=== PATIENT | male | born 1980 ===

== ENCOUNTER 2016-10-08 20:15 | Inpatient (IN) ==
[2016-10-08] MEDS ORDERED: methylPREDNISolone SOD SUC 125 MG/2 ML VIAL IV STA (21:58)
[2016-10-08] MEDS ORDERED: FUROSEMIDE 40 MG/4 ML VIAL IV STA (21:58)
[2016-10-08] MEDS ORDERED: ALBUTEROL NEB SOLN 5 MG/ML 20 ML/BOTTLE CONT NEB STA (21:58)
--- NOTE | 2016-10-08 21:59 | Emergency Department Note ---
Bill Peter Brooke, am scribing for, and in the presence of, Steve Godwin MD 21 :49. Citlali Peter Charles R, MD, personally performed the services described in this documentation, ascribed by Brissa Khan in my presence, and it is both accurate and complete . Arrival - Arrival Chief Complaint: Fall Stated Complaint: FALL/PAIN/CANT CONCENTRATE ED Nursing Triage Note: pt to triage . pt states he fell in hallway this afternoon. pt states he is unsure of what he hit his head on. p t c.o headache. pt states he thinks he had loc. pt aaox3 in triage. Mode of Arrival: Ambulatory Limitations: No Limitations Source: Patient, RN Notes Reviewed Time Seen by Provider: 10/08/16 21:39 - History of Present Illness HPI Narrative: Patient is a 36 year old male who presents to the ED with c/o possible syncopal episode that happened prior to arrival. Patient says he remembers sitting down on the toilet and then says he woke up in the floor of the [address]. He did hit his head and has a knot to the forehead. He states, after waking, "it took me a minute to figure out where I was." He says that he "feels off." He says he has never passed out in the past and does not have a history of seizures. Patient says the left side of his chest does hurt "a little bit." He has PMHx of asthma , bronchitis, pneumonia, GERD, and chronic foot pain. Patient is a smoker. Family history of heart disease- grandfather. Allergies/Adverse Reactions: Allergies Allergy/AdvReac Type Severity Reaction Status Date / Time Penicillins Allergy ANAPHYLAXIS Verified 10/08/16 20:52 Home Medications: Home Medications Medication Instructions Recorded Confirmed Type Pantoprazole Tab [Protonix Tab] 40 mg PO DAILY 03/25/15 06/09/15 History Albuterol Sulfate [Albuterol 2 puffs IH Q4H PRN #1 hfa.aer.ad 05/10/15 06/09/15 Rx Sulfate Hfa] HYDROcodone/ACETAMIN 7.5-325 1 tablet PO Q6H #20 tablet 06/09/15 Rx [[place] 7.5-325] Sulfameth/Trimeth 800-160 Tab 1 tablet PO BID #14 tablet 06/09/15 Rx [Bactrim Ds Tab] Sulfameth/Trimeth 400-80 Tab 1 tablet PO BID #20 tablet 06/13/15 Rx [Bactrim Tab] Review of System - Review of System 12 point system: reviewed and no additional remarkable complaints except as stated - Review of System Constitutional: Absent: fever Head/Ears/Nose/Throat: Present: other (knot on forehead) Respiratory: Absent: respiratory distress Cardiovascular: Present: chest pain (left side), syncope (possible) Skin: Absent: rash Medical,Surgical,& Family Hx - Medical History Cardio: No history of: Hypertension Endocrine: No history of: Diabetes Mellitus (IDDM), Diabetes Mellitus (NIDDM) Respiratory: History of: Asthma, Bronchitis, Pneumonia Renal: No history of: Renal Problems Gastrointestinal: History of: GERD No history of: Gastrointestinal Bleed, Liver Problems, GI Problems Musculoskeletal: History of: Musculoskeletal Problems (chronic foot pain) - Surgical History Abdominal Surgeries: Surgical HX of: Appendectomy Patient denies: Abdominal Surgery - Social History Smoking Status: Unknown if ever smoked Frequency of Alcohol Use: None Type of Drug Use: None Exam Vital Signs: Vital Signs Temperature 98.3 F 10/08/16 20:48 Pulse Rate 96 H 10/08/16 21:30 Respiratory Rate 20 10/08/16 21:30 Blood Pressure 144/84 10/08/16 21:30 O2 Sat by Pulse Oximetry 100 10/08/16 21:30 - General General appearance: alert, in no apparent distress, obese - Head Head exam: Present: normocephalic, other (3cm contusion to forehead that is painful) - Eye Eye exam: Present: normal appearance - ENT ENT exam: Present: normal exam - Neck Neck exam: Present: normal inspection - Chest Chest inspection: Present: normal inspection, symmetric chest wall rise - Respiratory Respiratory exam: Present: rales (bilateral), wheezes (bilateral) - Cardiovascular Cardiovascular exam: Present: normal rhythm, tachycardia, normal heart sounds - Abdominal Exam Abdominal exam: Present: soft. Absent: distention, tenderness - Extremities Exam Extremities exam: Present: pedal edema (+1 bilateral lower extremities) - Back Exam Back exam: Present: normal inspection - Neurological Exam Neurological exam: Present: alert, oriented X3 - Psychiatric Psychiatric exam: Present: normal affect, normal mood - Skin Skin exam: Present: warm, dry, intact, normal color Course - Consultations Consultation #1: Hospitalist will admit patient Time: 01:40 Results - Labs CBC & BMP: 10/08/16 21:59 10/08/16 21:59 Lab Results: I have reviewed the patients labs Labs: Laboratory Tests 10/08/16 21:59 WBC 15.8 H Neut # (Auto) 9.5 H Lymph # (Auto) 4.8 H [place] # (Auto) 0.9 H Laboratory Tests 10/08/16 00:52 Urine Urobilinogen < 2.0 H - Diagnostic Findings Procedure: Chest x-ray: report reviewed by me (No acute cardiopulmonary pathology identified), CT: report reviewed by me (CT head/brain wo con: No acute intracranial abnormality is identified.) Disposition Clinical Impression: Syncope, Bronchitis, Generalized weakness Case discussed with: patient Disposition: Still a Patient Condition: Stable Time of Disposition: 01:42
[2016-10-08] MEDS ORDERED: FUROSEMIDE 100 MG/10 ML VIAL ONE (22:17)
[2016-10-08] MEDS ORDERED: methylPREDNISolone SOD SUC 125 MG/2 ML VIAL ONE (22:17)
--- NOTE | 2016-10-08 22:40 | XRay Report ---
Portable chest Date: 10/08/2016 Clinical history: Shortness of breath Comparison: 11/16/2014 Technique: Portable AP sitting chest Findings: The heart is normal in size with cardiac fat pads. Calcified granulomata/nodes with no infiltration. Limited evaluation of the lung apices. Degenerative changes are noted. Impression: No acute cardiopulmonary pathology identified. PROCEDURE INTERPRETED AT [facility] DEPARTMENT OF RADIOLOGY Final Report Signed by: Dr. Pura Valenzuela
--- NOTE | 2016-10-08 22:47 | CT Report ---
Referring physician: Steve Godwin Exam: CT brain without contrast Date: 10/08/2016 Comparison: None Reason: Syncope Technique: Axial images of the head were obtained without the use of contrast. Total DLP was 1103.60 mGy*cm. Findings: No hydrocephalus or midline shift is present. There is no evidence of an acute infarction, recent intracranial hemorrhage or abnormal mass effect. The osseous structures appear intact. The mastoid air cells and visualized paranasal sinuses are clear. Impression: No acute intracranial abnormality is identified. The CT exam was performed using one or more of the following dose reduction techniques: Automated exposure control and adjustment of the mA and/or kV according to patient size. PROCEDURE INTERPRETED AT [facility] DEPARTMENT OF RADIOLOGY Final Report Signed by: Dr. Pura Valenzuela
[2016-10-08] MEDS ORDERED: ACETAMINOPHEN 500 MG TABLET ONE (23:26)
[2016-10-08] MEDS ORDERED: ACETAMINOPHEN 500 MG TABLET PO STA (23:33)
[2016-10-09 00:52] LABS: Basophils # 0.1 10*3/uL (0.0-0.2); Basophils % 0.4 % (0.0-0.8); Eosinophils # 0.4 10*3/uL (0.0-0.87); Eosinophils % 2.2 % (0.00-10.9); Hematocrit 44.9 VOL% (42.0-52.0); Hemoglobin 14.8 GM/DL (14.0-18.0); Immature Granulocytes Absolute 0.15 #; Lymphocytes # 4.8 10*3/uL (1.4-4.0); Lymphocytes % 30.1 % (21.2-54.2); Mean Corpuscular Hemoglobin 29 PG (27-34); Mean Corpuscular Volume 88.7 FL (87-102); Mean Platelet Volume 10.7 FL (9.6-12.0); Monocytes # 0.9 10*3/uL (0.11-0.8); Monocytes % 5.9 % (1.7-12.7); Neutrophils # 9.5 10*3/uL (1.4-7.4); Neutrophils % 60.4 % (38.7-73.9); Platelet Count 262 T/CUMM (130-400); Red Blood Count 5.06 MC/CUMM (3.8-5.5); Red Cell Distribution Width 14.2 % (9.3-17.3); White Blood Count 15.8 T/CUMM (4-12)
[2016-10-09 01:03] LABS: Barbiturates Screen,Urine Negative (Negative); Benzodiazepines Screen,Urine Negative (Negative); Cannabinoid Screen,Urine Negative (Negative); Opiate Screen,Urine Negative (Negative); Phencyclidine Screen,Urine Negative (Negative)
[2016-10-09 01:04] LABS: Apearance,Urine CLEAR (Clear); Bilirubin,Urine Negative (Negative); Blood, Urine Negative (Negative); Glucose,Urine (UA) Negative (Negative); Ketones,Urine Negative (Negative); Mucus,Urine Occasional /LPF (Occasional); Nitrite,Urine Negative (Negative); Protein,Urine Negative; RBC,Urine 1 /HPF (0-4); Squamous Epithelial Cell,Urine Occasional /HPF (0-10); Urine Color Yellow (Yellow); Urine Specific Gravity 1.009 (1.001-1.035); Urine Urobilinogen < 2.0 EU/DL (0.2-1.0); WBC,Urine 1 /HPF (0-6)
[2016-10-09 01:06] LABS: Alanine Aminotransferase 40 U/L (16-61); Albumin 3.8 G/DL (3.4-5.0); Alkaline Phosphatase 104 U/L (45-117); Aspartate Amino Transferase 22 U/L (0-37); Blood Urea Nitrogen 9 MG/DL (7-18); Calcium 8.9 MG/DL (8.5-10.1); Glucose 120 MG/DL (74-106); Osmolality,Calculated 274.7 MOS/KG (273-304); Potassium 3.6 MMOL/L (3.5-5.1); Sodium 138 MMOL/L (136-145); Total Protein 7.8 G/DL (6.4-8.3); Troponin I Only < 0.015 NG/ML (0.00-0.045)
--- NOTE | 2016-10-09 02:32 | Hospitalist History & Physical ---
Assessment and Plan (1) Sinus tachycardia Status: Acute Assessment and plan: Because of this is unknown we will check thyroid function tests. Also check a urine drug screen Current Visit: Yes (2) Syncope Status: Acute Assessment and plan: Unexplained syncope I am informed this started as the patient had been on the bathroom. Vasovagal can happen. That does not explain why he is so tachycardic he does not look dehydrated. There is no history of bleeding. This could be vasogenic syncopal or could be neurogenic syncope but vasovagal activity is the hired to the differential given his circumstances. Was to check for troponins just in case there is an NSTEMI. Patient is consulted to neurology MRI MRA of the brain will be done on outside chance of intracranial structural pathology. Current Visit: Yes (3) Bronchitis Status: Acute Assessment and plan: Patient does have a leukocytosis he may want to be put on antibiotics. I will put the patient on a levofloxacin 750 IV daily she is to be reassessed by hospital medicine in the morning; he is admitted to Dr. Pinto's service Current Visit: Yes History of Present Illness Chief complaint: Past out at home patient also was wheezing History of present illness: Mr. Robin is a 36 year old male presents to the ED with c/o possible syncopal episode that happened prior to arrival. Patient says he remembers sitting down on the toilet and then says he woke up in the floor of the [address]. He did hit his head and has a knot to the forehead. He states, after waking, "it took me a minute to figure out where I was." He says that he "feels off." He says he has never passed out in the past and does not have a history of seizures. Patient says the left side of his chest does hurt "a little bit." He has PMHx of asthma , bronchitis, pneumonia, GERD, and chronic foot pain. Patient is a smoker. Family history of heart disease- grandfather. Patient denies taking any medications but are noticed that he has been on hard hydrocodone at home though that was not updated. He has significant sinus tachycardia though history that his heart is always fast. Denies any diarrhea cough fevers polyuria and polydipsia. Home Medications Medication Instructions Recorded Confirmed Type Pantoprazole Tab [Protonix Tab] 40 mg PO DAILY 03/25/15 06/09/15 History Albuterol Sulfate [Albuterol 2 puffs IH Q4H PRN #1 hfa.aer.ad 05/10/15 06/09/15 Rx Sulfate Hfa] HYDROcodone/ACETAMIN 7.5-325 1 tablet PO Q6H #20 tablet 06/09/15 Rx [[place] 7.5-325] Sulfameth/Trimeth 800-160 Tab 1 tablet PO BID #14 tablet 06/09/15 Rx [Bactrim Ds Tab] Sulfameth/Trimeth 400-80 Tab 1 tablet PO BID #20 tablet 06/13/15 Rx [Bactrim Tab] Allergies Allergy/AdvReac Type Severity Reaction Status Date / Time Penicillins Allergy ANAPHYLAXIS Verified 10/08/16 20:52 Medical,Surgical,& Family Hx - Medical History Cardio: No history of: Hypertension Endocrine: No history of: Diabetes Mellitus (IDDM), Diabetes Mellitus (NIDDM) Respiratory: History of: Asthma, Bronchitis, Pneumonia Renal: No history of: Renal Problems Gastrointestinal: History of: GERD No history of: Gastrointestinal Bleed, Liver Problems, GI Problems Musculoskeletal: History of: Musculoskeletal Problems (chronic foot pain) - Surgical History Abdominal Surgeries: Surgical HX of: Appendectomy Patient denies: Abdominal Surgery - Social History Smoking Status: Unknown if ever smoked Frequency of Alcohol Use: None Type of Drug Use: None - Constitutional Constitutional: Present: as per HPI - EENT Eyes: Present: as per HPI Nose, mouth and throat: Present: as per HPI - Cardiovascular Cardiovascular: Present: as per HPI - Respiratory Respiratory: Present: as per HPI - Gastrointestinal Gastrointestinal: Present: as per HPI - Genitourinary Genitourinary: Present: as per HPI - Neurological Neurological: Present: as per HPI - Psychiatric Psychiatric: Present: as per HPI - Endocrine Endocrine: Present: as per HPI - Hematologic/Lymphatic Hematologic/Lymphatic: Present: as per HPI Exam - Constitutional Vitals: Period Temp Pulse Resp BP Sys/Givens Pulse Ox Last 24 Hr 98.3 F 18-108 20-20 136-145/84-94 98-100 General appearance: over weight - Head Head exam: Present: normocephalic, atraumatic, other (Patient however he did fine but of his head and states that is hurting there is no external abnormalities) - Eye Eye exam: Present: EOMI, other (Anicteric sclera no conjunctival petechiae) Pupils: Present: MARIANNE - ENT ENT exam: Present: normal oropharynx - Neck Neck exam: Present: normal inspection - Respiratory Respiratory exam: Present: clear to auscultation bilaterally, other - Cardiovascular Cardiovascular exam: Present: regular rate and rhythm, tachycardia, other ( Sinus control) - GI/Abdominal GI/Abdominal exam: Present: normal bowel sounds, soft - Extremities Exam Extremities exam: Present: full ROM - Back Exam Back exam: Present: normal inspection - Neurological Exam Neurological exam: Present: alert, oriented X3, CN II-XII intact - Psychiatric Psychiatric exam: Present: normal affect, normal mood - Skin Skin exam: Present: normal color, warm, dry Results - Labs CBC & BMP: 10/08/16 21:59 10/08/16 21:59 Lab Results: I have reviewed the past 24 hour labs (EKG is sinus tachycardia. CT of the head is nondiagnostic chest x-ray is nondiagnostic)
[2016-10-09] MEDS: DEXTROSE 5% NACL 0.9% 1,000 ML IV SCH ×2 (05:33→17:47)
[2016-10-09 08:06] LABS: Blood Urea Nitrogen 8 MG/DL (7-18); Calcium 9.5 MG/DL (8.5-10.1); Glucose 279 MG/DL (74-106); Magnesium 2.3 MG/DL (1.8-2.4); Potassium 4.1 MMOL/L (3.5-5.1); Sodium 136 MMOL/L (136-145); Troponin I Only < 0.015 NG/ML (0.00-0.045)
--- NOTE | 2016-10-09 08:47 | EKG Report ---
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
[2016-10-09] MEDS ORDERED: LORazepam 2 MG/1 ML VIAL IV ONE (08:59)
[2016-10-09] MEDS: PANTOPRAZOLE 40 MG TABLET PO SCH (09:31)
--- NOTE | 2016-10-09 13:24 | Magnetic Resonance Report ---
MR angio head wo con (COW) Indication: Syncope. Profound fatigue. Comparison: None. Technique: Using a 1.5 Hortensia magnet, [id number] MRA of the [place] of [place] was performed. In addition to axial images obtained from the skull base to the mid calvarium, volumetric reconstructions of the anterior and posterior circulation were submitted for interpretation. No intravenous contrast was administered. Findings: Posterior communicating arteries are not well-visualized suggesting anatomic absence or small vessel size. Anterior circulation demonstrates no evidence of aneurysm formation, significant stenosis, or occlusion. The ophthalmic arteries are unremarkable. The visualized portions of the terminal vertebral arteries, basilar artery, basilar artery bifurcation, and posterior cerebral arteries demonstrates no significant abnormality. Impression: 1. No findings are present to suggest etiology of the provided symptoms. 10/09/2016 1:19 PM PROCEDURE INTERPRETED AT [facility] DEPARTMENT OF RADIOLOGY Final Report Signed by: Dr. Celestino Soriano
--- NOTE | 2016-10-09 13:26 | Magnetic Resonance Report ---
MR head/brain w and wo con Indication: Syncope. Fatigue. Comparison: None. Technique: Using 1.5 Hortensia magnet, multisequence multiplanar MR imaging of the brain was performed prior to and following the administration of intravenous contrast. Findings: There is no evidence of restricted diffusion to suggest acute infarction. Sagittal T1 sequence demonstrates corpus callosum to be intact. The pituitary gland and optic nerve appear unremarkable. Cerebellar tonsils demonstrate normal location. Axial sequences demonstrate no evidence of mass, hemorrhage, hydrocephalus, or midline shift. Basal cisterns are patent. The arterial flow voids demonstrate no significant abnormalities. The cerebellum demonstrates no significant abnormality. The intraorbital contents, calvarium, soft tissues overlying the calvarium, mastoid air cells, and imaged muscles of mastication demonstrate no significant abnormality. Small mucous retention cyst is suggested within the left maxillary sinus. The sinuses otherwise are clear. Following administration of intravenous contrast, no unexpected areas of enhancement are demonstrated within the brain, meninges, or orbits. Impression: 1. No evidence of acute intracranial pathology. 10/09/2016 1:21 PM PROCEDURE INTERPRETED AT [facility] DEPARTMENT OF RADIOLOGY Final Report Signed by: Dr. Celestino Soriano
--- NOTE | 2016-10-09 15:22 | Hospitalist Progress Note ---
Assessment and Plan (1) Syncope Status: Acute Current Visit: Yes (2) Sinus tachycardia Status: Acute Current Visit: Yes Hospitalist: Subjective Interval history: No acute events overnight. Patient remembers blacking out yesterday, sitting on toilet, woke up in the hallway. First episode of this in a young patient. Neurology work-up is underway. Currently being monitored on telemetry. He might benefit from a holter monitor outpatient, will consult cardiology. No repeat episodes of syncope since admission. Possible discharge tomorrow. Exam - Constitutional Vitals: Period Temp Pulse Resp BP Sys/Givens Pulse Ox Last 24 Hr 97.6 F-97.9 F 111-117 20-20 128-129/66-77 95-97 General appearance: morbidly obese - Head Head exam: Present: normocephalic, atraumatic - Eye Eye exam: Present: EOMI Pupils: Present: MARIANNE - ENT ENT exam: Present: normal exam - Neck Neck exam: Present: normal inspection - Respiratory Respiratory exam: Present: clear to auscultation bilaterally. Absent: rhonchi, wheezes - Cardiovascular Cardiovascular exam: Present: regular rate and rhythm - GI/Abdominal GI/Abdominal exam: Present: normal bowel sounds, soft. Absent: tenderness, rebound - Extremities Exam Extremities exam: Present: normal inspection - Back Exam Back exam: Present: normal inspection - Neurological Exam Neurological exam: Present: alert, oriented X3 - Psychiatric Psychiatric exam: Present: normal affect, normal mood - Skin Skin exam: Present: warm, intact Results - Labs CBC & BMP: 10/08/16 21:59 10/09/16 07:22
--- NOTE | 2016-10-09 16:28 | Neurology Consult Note ---
History of Present Illness History of present illness: Mr. Robin is a 36 year old right-handed white gentleman morbidly obese presents to the ED with c/o possible syncopal episode that happened prior to arrival. Patient says he remembers sitting down on the toilet and then says he woke up in the floor of the [address]. He did hit his head and has a knot to the forehead. He states, after waking, it took him a minute to figure out where he was." He says that he "feels off." He says he has never passed out in the past and does not have a history of seizures. He has PMHx of asthma, bronchitis, pneumonia, GERD, and chronic foot pain. Patient is a smoker. Family history of heart disease- grandfather. MRI of the brain and MRA of the [place] are all within normal limits. Home Medications Medication Instructions Recorded Confirmed Type No Known Home Medications [No 10/09/16 10/09/16 History Known Home Medications] Allergies Allergy/AdvReac Type Severity Reaction Status Date / Time Penicillins Allergy ANAPHYLAXIS Verified 10/08/16 20:52 12 point system: reviewed and no additional remarkable complaints except as stated Medical,Surgical,& Family Hx - Medical History Cardio: No history of: Hypertension Neurology: History of: Peripheral Neuropathy Endocrine: No history of: Diabetes Mellitus (IDDM), Diabetes Mellitus (NIDDM) Respiratory: History of: Asthma, Bronchitis, Pneumonia Renal: No history of: Renal Problems Genitourinary: History of: Kidney Stones Gastrointestinal: History of: GERD No history of: Gastrointestinal Bleed, Liver Problems, GI Problems Musculoskeletal: History of: Musculoskeletal Problems (chronic foot pain) - Surgical History Abdominal Surgeries: Surgical HX of: Appendectomy Patient denies: Abdominal Surgery - Social History Smoking Status: Current every day smoker Frequency of Alcohol Use: None Type of Drug Use: None Exam - Constitutional Vitals: Period Temp Pulse Resp BP Sys/Givens Pulse Ox Last 24 Hr 97.6 F-98.6 F 106-117 20-20 128-131/66-85 95-98 Exam: GENERAL: Patient is in no acute distress. NECK: Neck is supple. There is no JVD. No carotid bruits present. No thyroid masses. CVS: First and second heart sounds are normal. There is no S3 present. Regular rate and rhythm. RESPIRATORY: Lungs are clear to auscultation without any rales or rhonchi. ABDOMEN: Soft and non-tender. Bowel sounds are present. There is no hepatosplenomegaly. EXT: There is no palpable edema. Peripheral pulses are present. Skin: No rashes Central Nervous system: General: Alert, awake and Oriented x 3 Speech: Fluent Comprehension: Intact and normal Facial expressions: Normal Cranial Nerves: CN1/Olfactory: Normal CN II/ Optic: Normal, Visual Patino unreliable CN III, and : MARIANNE & EOMI CN V: Normal & intact CN VII: face is symmetric CNVIII: Normal CN XI/X/XI/XII: Intact and Normal Motor: Bulk and Tone is normal. Strength in the right 5/5 Strength in the left 5/5 Sensory: Grossly intact for all the modalities of PP, LT and temp sense Reflexes: 1+ and symmetrical Cerebellar function: Normal finger to nose and heel to vaca testing. Toes: Equivocal Gait: Normal heel to heel and toe to toe and tandem walk. Results - Labs CBC & BMP: 10/08/16 21:59 10/09/16 07:22 Assessment and Plan (1) Syncope Status: Acute Assessment and plan: Sounds like a vasovagal phenomena. No evidence of a stroke, TIAs, epilepsy or seizures. No further neurological intervention needed. Okay to go home when okay with PCP Sign off please call as needed Current Visit: Yes
[2016-10-09] MEDS ORDERED: ENOXAPARIN 150 MG/ML SYRINGE SUBCUT ONE (16:52)
[2016-10-09] MEDS ORDERED: ASPIRIN EC 325 MG TABLET PO SCH (17:00)
--- NOTE | 2016-10-09 17:06 | Cardiology Consult Note ---
<Candie Garcia E - Last Filed: 10/09/16 16:54> Assessment and Plan - Time spent with patient Time spent with patient: Greater than 30 minutes Time spent discussing smoking cessation with patient: 3 to 10 minutes (1) Chest pain Status: Acute Assessment and plan: See plan of care listed below Current Visit: Yes (2) Morbid obesity Status: Chronic Assessment and plan: See plan of care listed below Current Visit: Yes (3) Sleep disturbance Status: Chronic Assessment and plan: See plan of care listed below Current Visit: Yes (4) Tobacco use Status: Chronic Assessment and plan: See plan of care listed below Current Visit: Yes (5) Syncope Status: Acute Assessment and plan: See plan of care listed below Current Visit: Yes (6) Sinus tachycardia Status: Acute Assessment and plan: See plan of care listed below Current Visit: Yes History of Present Illness - Data of Consult Patient: new to practice Consult date: 10/09/16 Requesting Physician: Darnell Bañuelos - Consult Narrative Reason for consult: syncope History of present illness: 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 Robin is a 36 year old male not previously followed by cardiology. Risk factors include: Morbid obesity, sedentary lifestyle, tobaccoism. Presented to the emergency department at [facility] this morning after experiencing a syncopal episode while using the bathroom yesterday. Patient tells me while he was sitting on the commode he passed out and when he awoke, he was lying on the floor. He tells me he is uncertain how long he was out. It was not witnessed by another so there was no seizure activity noted. He did lose control of his urine. When he woke, he tells me he is having a chest tightness in the center of his chest which lasted several hours. It did not radiate but he found it was affecting his breathing. Taking a deep breath was somewhat painful. He is currently chest pain-free. Upon arrival to the emergency department, he has undergone CT head, MRA of the brain which revealed no significant abnormality. Chest x-ray is unremarkable. EKG reveals sinus tachycardia. 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 Since beginning driving, he has noted bilateral lower extremity edema. He has neuropathy of lower extremities and does not feel pain very well. However, upon palpation of the right calf, he is tender to touch. He has never been diagnosed with a DVT or PTE. He has never had a cardiac workup. Echocardiogram has been completed and results are pending. Patient will undergo V/Q lung scan today, venous ultrasound bilateral lower extremities. I will start Lovenox 1 mg/kg 1 until the results of the V/Q lung scan returned. He has been given an aspirin as well. I will start a low-dose beta-martha and monitor his heart rate. Of note, patient does not have insurance and certainly could benefit from a sleep study. He has a Malampati Airway class IV, witnessed cessation of breathing while sleeping. Neck circumference greater than 44 cm. I stressed the importance of obtaining healthcare benefits and now that he is working he believes he may be eligible soon for insurance. ASSESSMENT/PLAN: 1. SYNCOPE -see plan of care listed above. 2. SINUS TACHYCARDIA - adding betablocker and ruling out PTE as etiology 3. HYPERTENSION - will adjust medications accordingly during hospitalization 4. MORBID OBESITY - reinforced the merits of weight loss 5. SLEEP DISORDER - will need outpatient sleep study 6. EDEMA - venous US BLE 7. CHEST PAIN - will rule out PTE. CIE negative. Will continue to follow. 8. TOBACCOISM -the merits of tobacco cessation was discussed for greater than 5 minutes CC: Letitia Pinto MD - Home Medications and Allergies Home Medications: Home Medications Medication Instructions Recorded Confirmed Type No Known Home Medications [No 10/09/16 10/09/16 History Known Home Medications] Allergies/Adverse Reactions: Allergies Allergy/AdvReac Type Severity Reaction Status Date / Time Penicillins Allergy ANAPHYLAXIS Verified 10/08/16 20:52 Review of systems: REVIEW OF SYSTEMS: - Constitutional Constitutional: Present: Fatigue. Absent: syncope, anorexia, night sweats - EENT Eyes: Absent: blurry vision, loss of vision, diplopia Ears: Absent: decreased hearing, ear pain, ear discharge - Cardiovascular Cardiovascular: Present: chest pain with deep breath. Edema bilateral lower extremities. Denies claudication - Respiratory Respiratory: Present: RAYMOND, chronic. Absent: wheezing, hemoptysis, change in phlegm color - Gastrointestinal Gastrointestinal: Denies constipation. Absent: abdominal pain, hematemesis, hematochezia, melena, change in bowel habits, nausea - Genitourinary Genitourinary: Absent: difficulty urinating, dysuria, urinary hesitancy, flank pain - Musculoskeletal Musculoskeletal: Present: back pain Absent: joint swelling, muscle cramps, muscle weakness - Neurological Neurological: Present: normal gait without frequent falls. Absent: dizziness, hemiparesis - Psychiatric Psychiatric: Absent: anxiety, depression, difficulty concentrating - Endocrine Endocrine: Present: fatigue. Absent: cold intolerance, heat intolerance, polyuria, polyphagia, polydipsia - Hematologic/Lymphatic Hematologic/Lymphatic: Present: easy bruising. Absent: easy bleeding -Integumentary Integumentary: Absent: lesions, rashes, skin breakdown Medical,Surgical,& Family Hx - Medical History Cardio: No history of: Cardiac Dysrhythmia, CHF, CAD, Hypertension, NC Neurology: History of: Peripheral Neuropathy Endocrine: No history of: Diabetes Mellitus (IDDM), Diabetes Mellitus (NIDDM) Respiratory: History of: Asthma, Bronchitis, Pneumonia Renal: No history of: Renal Problems Genitourinary: History of: Kidney Stones Gastrointestinal: History of: GERD No history of: Gastrointestinal Bleed, Liver Problems, GI Problems Musculoskeletal: History of: Musculoskeletal Problems (chronic foot pain) - Surgical History Abdominal Surgeries: Surgical HX of: Appendectomy Patient denies: Abdominal Surgery - Social History Smoking Status: Current every day smoker Have you smoked in the last 12 months: Yes Time spent discussing smoking cessation with patient: 3 to 10 minutes Frequency of Alcohol Use: None Type of Drug Use: None Marital Status: Single Functional capacity: independent ambulation Physical Examination Vital Signs Temp Pulse Resp BP Pulse Ox 98.3 F 108 H 20 145/94 98 10/08/16 20:48 10/08/16 20:48 10/08/16 20:48 10/08/16 20:48 10/08/16 20:48 General: [Appears well with no apparent distress.] [Pleasant and cooperative. ] [Appears comfortable.] HEENT: [PERRL, normocephalic, atraumatic. Mucous membranes moist. No jaundice noted. Conjunctiva moist and clear, sclerae anicteric] Neck: Difficult to assess for JVD due to habitus. No thyromegaly or lymphadenopathy noted. No carotid bruit appreciated Cardiac: [Tachycardic rate and rhythm.] [No obvious murmur rub or gallop.] Lungs: [Clear to auscultation without accessory muscle use to assist the respiratory pattern.] Not requiring oxygen Abdomen: Soft, bowel sounds normoactive. Nontender and nondistended. No abdominal bruit or thrill noted. No masses noted. Musculoskeletal: No fluid collection. Decreased range of motion is noted. Extremities: No clubbing, cyanosis noted. [Trace bilateral lower extremity edema ] Upper extremity pulses 2+. Lower extremity pulses 2+. Capillary refill less than 3 seconds. Skin: No unusual lesions or rashes. No skin breakdown appreciated. Neuro: Awake, alert and oriented 3. Moves all extremities well without hemiparesis or paralysis. No essential tremor is appreciated. Result/EKG - Labs CBC & BMP: 10/08/16 21:59 10/09/16 07:22 Lab Results: I have reviewed the past 24 hour labs Labs: Laboratory Results - last 24 hr 10/09/16 10/09/16 07:22 07:22 Sodium 136 Potassium 4.1 Chloride 101 Carbon Dioxide 21 Anion Gap 18.1 H BUN 8 Creatinine 1.20 GFR Calculation 121 BUN/Creatinine Ratio 6.00 Glucose 279 H Calculated Osmolality 279.0 Calcium 9.5 Magnesium 2.3 Troponin I < 0.015 TSH 3rd Generation 0.724 - Diagnostic Findings Procedure: Chest x-ray: report reviewed by me, CT: report reviewed by me, MRI: report reviewed by me, Ultrasound: pending - EKG EKG results: interpreted by me EKG shows: tachycardia <Jac Hernandez - Last Filed: 10/09/16 18:22> History of Present Illness - Consult Narrative History of present illness: Mr. Robin is a 36 year old male with history and exam as noted. Agree with assessment. This time we await his evaluation. His syncopal episode certainly may have been a post micturition syncope. We'll discuss his father with the patient. We'll order an echocardiogram. CC: Letitia Pinto MD Physical Examination Vital Signs Temp Pulse Resp BP Pulse Ox 98.3 F 108 H 20 145/94 98 10/08/16 20:48 10/08/16 20:48 10/08/16 20:48 10/08/16 20:48 10/08/16 20:48 Result/EKG - Labs CBC & BMP: 10/08/16 21:59 10/09/16 07:22 Labs: Laboratory Results - last 24 hr 10/09/16 10/09/16 07:22 07:22 Sodium 136 Potassium 4.1 Chloride 101 Carbon Dioxide 21 Anion Gap 18.1 H BUN 8 Creatinine 1.20 GFR Calculation 121 BUN/Creatinine Ratio 6.00 Glucose 279 H Calculated Osmolality 279.0 Calcium 9.5 Magnesium 2.3 Troponin I < 0.015 TSH 3rd Generation 0.724
--- NOTE | 2016-10-09 19:03 | Nuclear Medicine Report ---
Exam: Lung scan ventilation/perfusion Date: 10/09/2016 Comparison: Chest x-ray 10/08/2016 Reason: Shortness of breath, chest pain, syncope Technique: 40 mCi of technetium 99m DTPA aerosolized was inhaled with injection of 5 mCi of technetium 99m MAA . Ventilation and perfusion images of both lungs were acquired. Findings: Diminished ventilation peripherally in both lungs. No unmatched defects are identified. Impression: Low probability lung scan. PROCEDURE INTERPRETED AT [facility] DEPARTMENT OF RADIOLOGY Final Report Signed by: Dr. Pura Valenzuela
--- NOTE | 2016-10-09 19:08 | Ultrasound Report ---
Exam: Bilateral lower extremity venous Doppler ultrasound Comparison: None Clinical history: Bilateral lower edema Technique: Duplex scan of the lower extremity veins using B-mode/grayscale scaled imaging and Doppler spectral analysis and color flow. Findings: Major venous structures of the lower extremities demonstrate a normal course and caliber. Normal color-flow study and spectral analysis. There is normal compression and augmentation of bilateral common femoral, superficial femoral and popliteal veins. The proximal bilateral greater saphenous veins appear to be patent. Impression: No evidence to suggest deep venous thrombosis within either lower extremity. Ultrasound images were captured and stored. PROCEDURE INTERPRETED AT [facility] DEPARTMENT OF RADIOLOGY Final Report Signed by: Dr. Pura Valenzuela
--- NOTE | 2016-10-09 19:51 | ECHO Report ---
Carlos Robin 10/09/2016 Exam Date: 15:30 Referring Physician: Molly Seals Technologist: CHRISTIANE Age: 36 Ht (in): 72 Wt (lb): 300 MExam [facility] Gender: Echo [id number]: weakness, sinus tachycardia, syncopeIndications:onchitis BP: 129 / 77 HR: 111 SinusRhythm: Technically difficult studyTechnical Quality: IMPRESSIONS 1. This is very limited study. 2. Left that was grossly normal size and systolic function with ejection fraction 55+ percent. There is concentric left ventricle hypertrophy is mild to moderate with grade 1 diastolic dysfunction. 3. Other cardiac chambers appear to be grossly normal size. 4. Valvular structures are not well are adequate visualized but there is no gross Doppler abnormalities noted. MEASUREMENTS (Male / Female) Normal Values 2D ECHO LV Diastolic Diameter PLAX 4.3 cm 4.2 - 5.9 / 3.9 - 5.3 cm LV Systolic Diameter PLAX 2.8 cm LV Fractional Shortening PLAX 34.8 % IVS Diastolic Thickness 2.1 cm 0.6 - 1.0 / 0.6 - 0.9 cm LVPW Diastolic Thickness 1.8 cm 0.6 - 1.0 / 0.6 - 0.9 cm RV Internal Dim ED PLAX 2.4 cm Aortic Root Diameter 3.0 cm LA Systolic Diameter LX 3.2 cm 3.0 - 4.0 / 2.7 - 3.8 cm FINDINGS Left Ventricle Left ventricle is normal size and wall probably normal systolic function. Ejection fraction is 55+ percent. There is at least mild and possibly moderate concentric left ventricular hypertrophy. Evidence for mild diastolic dysfunction is present. Right Ventricle Normal right ventricular size and systolic function. Right Atrium Normal right atrial size. Left Atrium Normal left atrial size. Mitral Valve Mitral valve is anatomically functioning normal without Doppler abnormalities. Aortic Valve Aortic valves not active visualized but Doppler appears to be grossly normal. Tricuspid Valve Tricuspid valve is not adequate visualized but probably normal Doppler. Pulmonic Valve Pulmonic valve was directly visualized but no gross Doppler abnormalities. Pericardium No pericardial effusion. Aorta Normal size aortic root and proximal ascending aorta. Jac Keys MD (Electronically Signed) 09 October 2016 Final Date: 19:49
[2016-10-09] MEDS: METOPROLOL TARTRATE 25 MG TABLET PO SCH (21:40)
[2016-10-09] MEDS ORDERED: BUTALBITAL/ACETAMIN/CAFFEINE 50-325-40 MG TABLET PO PRN (21:53)
[2016-10-09] MEDS ORDERED: ZALEPLON 5 MG CAPSULE PO PRN (21:56)
[2016-10-10 04:52] LABS: Basophils # 0.1 10*3/uL (0.0-0.2); Basophils % 0.4 % (0.0-0.8); Eosinophils # 0.1 10*3/uL (0.0-0.87); Eosinophils % 0.5 % (0.00-10.9); Hemoglobin 14.3 GM/DL (14.0-18.0); Immature Granulocytes % 0.6 %; Immature Granulocytes Absolute 0.11 #; Lymphocytes % 31.6 % (21.2-54.2); Mean Corpuscular HGB Conc 31.8 GM/DL (32-36); Mean Corpuscular Hemoglobin 29 PG (27-34); Mean Corpuscular Volume 91.1 FL (87-102); Mean Platelet Volume 10.4 FL (9.6-12.0); Monocytes # 1.2 10*3/uL (0.11-0.8); Monocytes % 6.1 % (1.7-12.7); Neutrophils # 11.6 10*3/uL (1.4-7.4); Neutrophils % 60.8 % (38.7-73.9); Platelet Count 271 T/CUMM (130-400); Red Blood Count 4.94 MC/CUMM (3.8-5.5); Red Cell Distribution Width 14.6 % (9.3-17.3); White Blood Count 19.1 T/CUMM (4-12)
[2016-10-10 05:16] LABS: Calcium 9.1 MG/DL (8.5-10.1); Magnesium 2.5 MG/DL (1.8-2.4); Osmolality,Calculated 275.5 MOS/KG (273-304); Potassium 3.9 MMOL/L (3.5-5.1)
[2016-10-10 05:22] LABS: Risk Ratio 3.02; VLDL CHOLESTEROL 38.2 MG/DL
[2016-10-10] MEDS: DEXTROSE 5% NACL 0.9% 1,000 ML IV SCH (05:32)
[2016-10-10] MEDS ORDERED: ENOXAPARIN 40 MG/0.4 ML SYRINGE SUBCUT SCH (08:00)
[2016-10-10] MEDS: PANTOPRAZOLE 40 MG TABLET PO SCH (09:44)
[2016-10-10] MEDS: METOPROLOL TARTRATE 25 MG TABLET PO SCH (09:44)
[2016-10-10] MEDS ORDERED: LOVASTATIN 20 MG TABLET PO SCH (09:51)
--- NOTE | 2016-10-10 09:54 | Discharge Summary ---
<Shalom Wise - Last Filed: 10/10/16 10:19> Hospital Course - Hospital Course Hospital Course: This is very unfortunate 36 year old Male that presented to the ED at [facility] on 10/08 with a chief compliant of syncope. He has a very extensive medical history of asthma, bronchitis, obstructive sleep apnea, pneumonia, GERD, nicotine abuse, and chronic foot pain. At the time of presentation, he reported remembering sitting on the toilet and awakening in the hallway on the floor. He reported striking his head; he has a noted raised area to his forehead. He reported having difficulty remembering where he was and what had occurred. He denied any episodes similar in nature in the past; however reported some mild left sided chest wall pain. CT of the head was obtained which was essentially unremarkable. Due to the complexity of his presenting complaints; he was subsequently admitted under the hospitalist services for continuation of care. A cardiology and neurology consult was requested to assist in the management of the client during the clinical encounter. On 10/09; MRI and MRA of the brain was completed; which revealed no acute intracrainal process. Neurological evaluation was completed; which was unremarkable. Neurology concluded that the source of syncope was a result of a vasovagal response. He was evaluated by cardiology and a full cardiac work-up was performed. VQ scan and bilateral venous doppler studies were completed which were both unremarkable. The patient was started on beta martha. His lipid panels were elevated on today, he will be started on Mevacor. The patient is a current smoker. We discussed with him in great detail smoking cessation; however the patient has no desire to stop at this time. In my opinion, today; he is appropriate for discharge to follow-up with his PCP. Specialty Discharge - Follow Up or Referrals Follow up with: Lizabeth Campoverde DO [Physician] - 2 Weeks (hospital f/u) Discharge Plan - Discharge Medications New Lovastatin [Mevacor] 20 mg PO DAILY W/SUPPER #30 tablet Metoprolol Tartrate Tab [Lopressor Tab] 25 mg PO BID #60 tablet - Follow Up or Referral - Forms/Instructions Exam - Constitutional Vitals: Period Temp Pulse Resp BP Sys/Givens Pulse Ox Last 24 Hr 97.0 F-98.6 F 78-109 12-22 111-144/54-85 95-98 Discharge Results Procedures and tests throughout hospitalization: Pending Orders 10/10/16 Quick Strep Panel Routine Labs on day of discharge: Labs from last 24 hours 10/10/16 10/10/16 10/10/16 04:19 04:19 04:19 WBC 19.1 H RBC 4.94 Hgb 14.3 Hct 45.0 MCV 91.1 MCH 29 MCHC 31.8 L RDW 14.6 Plt Count 271 MPV 10.4 Neut % (Auto) 60.8 Lymph % (Auto) 31.6 [place] % (Auto) 6.1 Eos % (Auto) 0.5 Baso % (Auto) 0.4 Neut # (Auto) 11.6 H Lymph # (Auto) 6.0 H [place] # (Auto) 1.2 H Eos # (Auto) 0.1 Baso # (Auto) 0.1 Immature Gran % 0.6 Nucleated RBC % 0.0 Immature Gran # 0.11 Nucleated RBCs # 0.00 Sodium 139 Potassium 3.9 Chloride 102 Carbon Dioxide 24 Anion Gap 16.9 H BUN 11 Creatinine 0.80 GFR Calculation 180 BUN/Creatinine Ratio 13.00 Glucose 93 Calculated Osmolality 275.5 Calcium 9.1 Magnesium 2.5 H Triglycerides 191 H Cholesterol 145 LDL Cholesterol 79.0 VLDL Cholesterol 38.2 HDL Cholesterol 48 Heart Disease Risk Ratio 3.02 DS: Provider Date of admission: 10/09/16 02:13 Primary care physician: . No PCP Attending physician on admission: Letitia Pinto MD Consults: 10/09/16 02:15 Consult to Physician [CONS] Routine Comment: On-call physician Consulting Provider: Lele Judge Consult to Specialist Group: Neurology When should Consulting Provider be notified: In am Person Notified: AIMEE Date Notified: 10/09/16 Time Notified: 08:50 10/09/16 09:50 Consult to Physician [CONS] Routine Comment: synocopal episode, no cardiac hx, on tele Consulting Provider: Jac Keys Consult to Specialist Group: Cardiology Person Notified: OTONIEL Date Notified: 10/09/16 Time Notified: 10:15 Discharging clinician: Shalom Wies CNP <Letitia Pinto - Last Filed: 10/10/16 11:50> Hospital Course - Hospital Course Hospital Course: Patient seen and examined with FELISA Wise, agree with hospital course as documented. Neurology and cardiology work-up negative during admission. No repeat episodes of syncope since admission. Throat pain today, strep negative. Patient has now reached maximum benefit of inpatient stay and will be discharged home. - Time spent with patient Time with patient DS: Less than 30 minutes Diagnosis - Discharge Diagnosis (1) Syncope Status: Resolved (2) Sinus tachycardia Status: Resolved Discharge Plan - Discharge Data Condition at Discharge: Stable Discharge Diet: low salt diet Activity: resume usual activities as tolerated Hygiene: no restrictions Weight Bearing at Discharge: weight bear as tolerated Driving: no restrictions Contact your physician if you experience:: fever over 101, Shortness of breath Exam - Constitutional General appearance: over weight - Head Head exam: Present: normocephalic, atraumatic - Eye Eye exam: Present: EOMI Pupils: Present: MARIANNE - ENT ENT exam: Present: normal exam - Neck Neck exam: Present: normal inspection - Respiratory Respiratory exam: Present: clear to auscultation bilaterally. Absent: rhonchi, wheezes - Cardiovascular Cardiovascular exam: Present: regular rate and rhythm - GI/Abdominal GI/Abdominal exam: Present: normal bowel sounds, soft. Absent: tenderness, rebound - Extremities Exam Extremities exam: Present: normal inspection - Back Exam Back exam: Present: normal inspection - Neurological Exam Neurological exam: Present: alert, oriented X3 - Psychiatric Psychiatric exam: Present: normal affect, normal mood - Skin Skin exam: Present: warm, intact
--- NOTE | 2016-10-10 10:45 | Cardiology Progress Note ---
Assessment and Plan - Time spent with patient Time spent with patient: Greater than 30 minutes (1) Chest pain Status: Resolved Assessment and plan: See plan of care listed below Current Visit: Yes (2) Morbid obesity Status: Chronic Assessment and plan: See plan of care listed below Current Visit: Yes (3) Sleep disturbance Status: Chronic Assessment and plan: See plan of care listed below Current Visit: Yes (4) Tobacco use Status: Chronic Assessment and plan: See plan of care listed below Current Visit: Yes (5) Syncope Status: Resolved Assessment and plan: See plan of care listed below Current Visit: Yes (6) Sinus tachycardia Status: Resolved Assessment and plan: See plan of care listed below Current Visit: Yes Cardiology - PN: Subj Interval history: Overnight, patient has had no additional syncopal episodes. He has had no arrhythmia. VQ lung scan and venous Dopplers revealed no abnormality. He denies having chest pain, heaviness or tightness and has been ambulating without these complaints. He is ready for discharge and anxious to leave this morning. We discussed the possibility of an event monitor however he does not have any insurance benefits at this time. He tells me he will try to secure benefits and make an appointment to follow-up outpatient when his insurance benefits take place. I have also encouraged him to be evaluated for sleep study and he is considering as well. Exam (Progress Note) - Constitutional Vitals: Period Temp Pulse Resp BP Sys/Givens Pulse Ox Last 24 Hr 97.0 F-98.6 F 78-109 12-22 111-144/54-85 95-98 Exam: General: [Appears well with no apparent distress.] [Pleasant and cooperative. ] [Appears comfortable.] HEENT: [PERRL, normocephalic, atraumatic. Mucous membranes moist. No jaundice noted. Conjunctiva moist and clear, sclerae anicteric] Neck: No JVD/HJR, no thyromegaly or lymphadenopathy noted. No carotid bruit appreciated Cardiac: [Regular rate and rhythm.] [No murmur rub or gallop.] Lungs: [Clear to auscultation without accessory muscle use to assist the respiratory pattern.] Not requiring oxygen Abdomen: Soft, bowel sounds normoactive. Nontender and nondistended. No abdominal bruit or thrill noted. No masses noted. Musculoskeletal: No fluid collection. Decreased range of motion is noted. Extremities: No clubbing, cyanosis noted. [ No edema noted.] Upper extremity pulses 2+. Lower extremity pulses 2+. Capillary refill less than 3 seconds. Skin: No unusual lesions or rashes. No skin breakdown appreciated. Neuro: Awake, alert and oriented 3. Moves all extremities well without hemiparesis or paralysis. No essential tremor is appreciated. Result/EKG - Labs CBC & BMP: 10/10/16 04:19 10/10/16 04:19 Lab Results: I have reviewed the past 24 hour labs Labs: Laboratory Results - last 24 hr 10/10/16 10/10/16 10/10/16 04:19 04:19 04:19 WBC 19.1 H RBC 4.94 Hgb 14.3 Hct 45.0 MCV 91.1 MCH 29 MCHC 31.8 L RDW 14.6 Plt Count 271 MPV 10.4 Neut % (Auto) 60.8 Lymph % (Auto) 31.6 [place] % (Auto) 6.1 Eos % (Auto) 0.5 Baso % (Auto) 0.4 Neut # (Auto) 11.6 H Lymph # (Auto) 6.0 H [place] # (Auto) 1.2 H Eos # (Auto) 0.1 Baso # (Auto) 0.1 Immature Gran % 0.6 Nucleated RBC % 0.0 Immature Gran # 0.11 Nucleated RBCs # 0.00 Sodium 139 Potassium 3.9 Chloride 102 Carbon Dioxide 24 Anion Gap 16.9 H BUN 11 Creatinine 0.80 GFR Calculation 180 BUN/Creatinine Ratio 13.00 Glucose 93 Calculated Osmolality 275.5 Calcium 9.1 Magnesium 2.5 H Triglycerides 191 H Cholesterol 145 LDL Cholesterol 79.0 VLDL Cholesterol 38.2 HDL Cholesterol 48 Heart Disease Risk Ratio 3.02 - Diagnostic Findings Procedure: Chest x-ray: report reviewed by me, Ultrasound: report reviewed by me , X-ray: report reviewed by me (VQ lung scan) - EKG EKG results: interpreted by me EKG shows: sinus rhythm
[2016-10-10 12:41] VITALS: BP 115/68
== END 2016-10-10 13:27 | disposition home or self-care (01) | DRG 202 ==
LOC: N.ED 20:15 → N.EDINP 10-09 02:13 → N.TELES 10-09 04:33
PROVIDERS: ADMIT Internal Medicine; ATTEND Internal Medicine